=== PATIENT | female | born 1980 | race Caucasian/White ===

== ENCOUNTER 2024-07-21 12:06 | Outpatient (OUT) | payer OTHER, SELFPAY ==
--- NOTE | 2024-07-21 | XR_ITS ---
[facility] [place] [id number] Patient Name: KOJO WHITAKER MRN: [id number] date: 1980 Sex: F Assigned Patient Location: Current Patient Location: Accession/Order Number: [id number] Exam Date: 07/21/2024 12:09 Report Date: 07/22/2024 09:38 At the request of: NEAL BURK Procedure: XR lumbar spine 2-3V EXAMINATION: XR lumbar spine 2-3V HISTORY: LUMBAR SPINE PAIN COMPARISON: No relevant comparison available. FINDINGS: BONES: Normal. No significant spondylosis, scoliosis, fracture, or visible bony lesion. DISC SPACES: Normal. No significant disc height narrowing, subluxation, or endplate abnormality. PARASPINOUS: Negative. No paraspinous abnormality is seen. OTHER: Negative. XR/XR lumbar spine 2-3V IMPRESSION: No acute radiographic abnormality Electronically authenticated by: RUDDY BUI Date: 07/22/2024 09:38
== END 2024-07-21 12:07 | disposition home or self-care (01) ==
PROVIDERS: Visit Provider Orthopaedic Surgery Orthopaedic Surgery of the Spine
DX: M54.50 Low back pain, unspecified (principal)
CPT/HCPCS: 72100

== ENCOUNTER 2024-08-26 08:23 | Outpatient (OUT) | payer OTHER, SELFPAY ==
--- NOTE | 2024-08-26 | XR_ITS ---
The [address] [address] Patient Name: KOJO WHITAKER MRN: [id number] date: 1980 Sex: F Assigned Patient Location: Current Patient Location: Accession/Order Number: [id number] Exam Date: 08/26/2024 08:25 Report Date: 08/28/2024 07:07 At the request of: NEAL BURK Procedure: XR lumbar spine 2-3V EXAMINATION: XR lumbar spine 2-3V HISTORY: LUMBAR SPINE PAIN COMPARISON: No relevant comparison available. FINDINGS: BONES: Mild degenerative facet arthropathy L3-L4 through L5-S1. Height and alignment of the vertebral bodies. DISC SPACES: Moderate narrowing L5-S1. PARASPINOUS: Negative. No paraspinous abnormality is seen. OTHER: Negative. XR/XR lumbar spine 2-3V IMPRESSION: 1. L5-S1 moderate degenerative disc disease and multilevel mild degenerative facet arthropathy. Electronically authenticated by: CLARISSA SELELRS Date: 08/28/2024 07:07
== END 2024-08-26 08:24 | disposition home or self-care (01) ==
LOC: EC 08:23
PROVIDERS: Visit Provider Orthopaedic Surgery Orthopaedic Surgery of the Spine
DX: M54.50 Low back pain, unspecified (principal); M51.369 Other intervertebral disc degeneration, lumbar region without mention of lumbar back pain or lower extremity pain
CPT/HCPCS: 72100